=== PATIENT | male | born 1990 | race African-American/Black ===

== ENCOUNTER 2019-10-14 20:42 | Emergency (ER) | payer SELFPAY ==
--- NOTE | 2019-10-14 22:08 | RAD ---
Radiograph right hand 3 views: DATE: 10/14/2019 Time: 9:34 PM HISTORY: 29-year-old male status post blunt trauma to hand FINDINGS: Transverse-oblique fracture of mid diaphysis of fifth metacarpal with 60 degree volar angulation of d istal fragment, and almost 100% shaft width dorsal displacement of distal fragment. No dislocation. IMPRESSION: Acute, traumatic, significantly displaced and angulated boxers fracture of fifth metatarsal midshaft
== END 2019-10-14 22:12 | disposition left against medical advice (07) ==
LOC: ERS 20:42
DX: Z53.21 Procedure and treatment not carried out due to patient leaving prior to being seen by health care provider (principal)